=== PATIENT | male | born 1965 | race Caucasian/White ===

== ENCOUNTER 2016-08-12 07:30 | Emergency (ER) | payer MEDICAID ==
[~2016-08-12] VITALS: Ht 167.6 cm; Wt 56.0 kg
[~2016-08-12 07:30] MED LIST: ATOR20TA38 PO; METF-388 PO; POLY17PO6 PO
[2016-08-12 07:36] VITALS: Ht 167.6 cm; Wt 56.0 kg
[2016-08-12] MEDS ORDERED: KETOROLAC 30 MG INJ IV STA (07:52)
[2016-08-12] MEDS ORDERED: SOD CHLORIDE 0.9% 1,000 ML IV ONE (08:00)
--- NOTE | 2016-08-12 08:28 | RADRPT ---
PROCEDURE: XR Chest. CLINICAL INDICATION: Cough TECHNIQUE: PA and lateral chest x-ray. COMPARISON: 01/26/2016 FINDINGS: The lungs are adequately expanded with mild perihilar interstitial thickening and bronchial wall thi ckening. There is no focal consolidation, pleural effusion, or pneumothorax. The heart and mediasti nal contours are unremarkable. Bones are unremarkable. No acute fractures are present. RPTAT: EE IMPRESSION: Mild airways disease which can be seen with viral/atypical pneumonia or asthma. .Yadira Russell MD, MD Date Time Electronically viewed and signed by .Yadira Russell MD, MD on 08/12/2016 08:32 .T/
[2016-08-12 08:58] LABS: BASOPHILS % 0.3 % (0.0-2.0); HEMATOCRIT 48.4 % (42.0-52.0); HEMOGLOBIN 16.1 g/dl (14.0-18.0); LYMPHOCYTES # 0.4 10^3/ul (0.8-2.9); LYMPHOCYTES % 4.6 % (15.0-51.0); MEAN CORPUSCULAR HEMOGLOBIN 31.7 pg (29.0-33.0); MEAN CORPUSCULAR HGB CONC 33.3 g/dl (32.0-37.0); MEAN PLATELET VOLUME 8.3 fl (7.4-10.4); MONOCYTE # 0.5 10^3/ul (0.3-0.9); MONOCYTES % 5.2 % (0.0-11.0); NEUTROPHIL # 8.2 10^3/ul (1.6-7.5); NEUTROPHILS % 89.9 % (39.0-77.0); PLATELET COUNT 181 10^3/UL (140-440); UNCORRECTED WBC 9.1 10^3/ul (4.8-10.8); WHITE BLOOD COUNT 9.1 10^3/ul (4.8-10.8)
[2016-08-12 09:11] LABS: ALBUMIN 4.5 g/dl (3.3-4.9)
[2016-08-12 09:12] LABS: POTASSIUM 4.3 mmol/L (3.5-5.1)
[2016-08-12 09:13] LABS: CONDITION 1
[2016-08-12 09:14] LABS: ALBUMIN/GLOBULIN RATIO 1.32; BILIRUBIN,INDIRECT 0.7 mg/dl (0-1.1); BILIRUBIN,TOTAL 0.7 mg/dl (0.2-1.3); CREATININE 0.97 mg/dl (0.61-1.24); TOTAL PROTEIN 7.9 g/dl (6.1-8.1)
[2016-08-12 09:15] LABS: CALCIUM 9.1 mg/dl (8.4-10.2)
[2016-08-12] MEDS ORDERED: INSULIN REGULAR, HUMAN 100 UNIT/1 ML 3ML VIAL IV ONE ×2 (10:00→11:30)
--- NOTE | 2016-08-12 10:15 | ERD ---
ER Documentation Chief Complaint Date/Time DATE: 08/12/16 TIME: 10:10 Chief Complaint PELVIC PAIN, POLY DIPSIA, URINARY FREQUENCY, SORE THROAT, VOMITING HPI Patient presents with several days of coughing congestion, sore throat, sneezing , fever, dry mouth. He states he is coughing up yellow-green sputum. He also has a bilateral earache. He denies any vomiting, diarrhea, or ill contacts. He did not get his flu shot this year. He states his blood sugars have been running in the 200-300 range. He admits he did not take his diabetic medication today. He states that the rhinorrhea from his nose is clear. He has not traveled out of the country. He has not tried any iwem-trr-eewmeuo medications for this illness. ROS All systems reviewed and are negative except as per history of present illness. Medications Home Meds Active Scripts Metformin Hcl* (Metformin Hcl*) 1,000 Mg Tablet, 1000 MG PO BID, #60 TAB Prov:LUCAS TEIXEIRA 06/13/16 Polyethylene Glycol* (Miralax*) 17 Gm Powd.pack, 17 GM PO DAILY, #7 Prov:NATE LLAMAS MD 01/27/16 Reported Medications Atorvastatin Calcium* (Atorvastatin Calcium*) 20 Mg Tablet, 20 MG PO QHS, #30 TAB 01/26/16 Metformin Hcl* (Metformin Hcl*) 1,000 Mg Tablet, 1000 MG PO WITH BREAKFAST DINNE , #60 TAB 01/26/16 Allergies Allergies: Coded Allergies: No Known Allergy (Unverified , 01/26/16) PMhx/Soc History of Surgery: Yes (ABDOMINAL SURGERY (UNKNOWN)) Anesthesia Reaction: No Hx Neurological Disorder: No Hx Respiratory Disorders: No Hx Cardiac Disorders: Yes (high cholesterol) Hx Psychiatric Problems: No Hx Miscellaneous Medical Probl: Yes (DM) Hx Alcohol Use: No Hx Substance Use: No Hx Tobacco Use: No Smoking Status: Never smoker Physical Exam Vitals Vital Signs Date Time Temp Pulse Resp B/P Pulse Ox O2 Delivery O2 Flow Rate FiO2 08/12/16 09:09 99.1 92 20 96/60 95 Room Air 08/12/16 07:36 100.3 110 22 115/59 95 Physical Exam Const: Well-developed thin male on the bed who appears ill but nontoxic, he coughed up some scant purulent phlegm in front of me Head: Atraumatic Eyes: Normal Conjunctiva ENT: Normal External Ears, Nose and Mouth., Posterior pharynx is erythematous Neck: Full range of motion..~ No meningismus. Resp: Clear to auscultation bilaterally Cardio: Regular rate and rhythm, no murmurs Abd: Soft, non tender, non distended. Normal bowel sounds Skin: No petechiae or rashes Back: No midline or flank tenderness Ext: No cyanosis, or edema Neur: Awake and alert Psych: Normal Mood and Affect Result Diagram: 08/12/16 0800 08/12/16 0800 Results 24 hrs Laboratory Tests Test 08/12/16 08:00 08/12/16 08:09 08/12/16 09:41 Alanine Aminotransferase (ALT/SGPT) 46IU/L Albumin 4.5g/dl Albumin/Globulin Ratio 1.32 Alkaline Phosphatase 136IU/L Anion Gap 27 Aspartate Amino Transf (AST/SGOT) 31IU/L Basophils # 0.010^3/ul Basophils % 0.3% Blood Urea Nitrogen 16mg/dl Calcium Level 9.1mg/dl Carbon Dioxide Level 21mmol/L Chloride Level 94mmol/L Creatinine 0.97mg/dl Direct Bilirubin 0.00mg/dl Eosinophils # 0.010^3/ul Eosinophils % 0.0% Globulin 3.40g/dl Glucose Level 388mg/dl Hematocrit 48.4% Hemoglobin 16.1g/dl Indirect Bilirubin 0.7mg/dl Lymphocytes # 0.410^3/ul Lymphocytes % 4.6% Mean Corpuscular Hemoglobin 31.7pg Mean Corpuscular Hemoglobin Concent 33.3g/dl Mean Corpuscular Volume 95.0fl Mean Platelet Volume 8.3fl Monocytes # 0.510^3/ul Monocytes % 5.2% Neutrophils # 8.210^3/ul Neutrophils % 89.9% Nucleated Red Blood Cells # 0.010^3/ul Nucleated Red Blood Cells % 0.0/100WBC Platelet Count 57161^3/UL Potassium Level 4.3mmol/L Red Blood Count 5.1010^6/ul Red Cell Distribution Width 13.0% Sodium Level 138mmol/L Total Bilirubin 0.7mg/dl Total Protein 7.9g/dl White Blood Count 9.110^3/ul Bedside Glucose 384mg/dL 333mg/dL Current Medications Medications (Trade) Dose Ordered Sig/Natividad Route PRN Reason Start Time Stop Time Status Last Admin Dose Admin Sodium Chloride (NS) 1,000 ml @ 1,000 mls/hr Q1H ONCE IV 08/12/16 08:00 08/12/16 08:59 DC 08/12/16 08:20 Ketorolac Tromethamine (Toradol) 30 mg ONCE STAT IV 08/12/16 07:52 08/12/16 07:55 DC 08/12/16 08:20 Insulin Human Regular (Humulin R) 8 unit ONCE ONCE IV 08/12/16 10:00 08/12/16 10:01 DC Departure Diagnosis: Primary Impression: Bronchitis Additional Impression: Hyperglycemia due to type 2 diabetes mellitus Diabetes mellitus intermediate card tender insulin use: with intermediate card tender use Qualified Code: E11.65 - Type 2 diabetes mellitus with hyperglycemia, with long-term current use of insulin Condition: Good Patient Instructions: Acute Bronchitis Additional Instructions: Take all the medications as prescribed. Please take your diabetic medications at all times. Drink plenty of fluids and stay hydrated. Take Tylenol or Motrin as needed for fever and body aches. See her primary care physician if not improving in the next 3-5 days. Return to the emergency department for any new or worsening symptoms. ANNIKA SAUNDERS Aug 12, 2016 10:15
[2016-08-12] MEDS ORDERED: AZIT250T94 PO (10:16)
[2016-08-12] MEDS ORDERED: BENZ100C70 PO (10:17)
[2016-08-12] MEDS ORDERED: HYDR473S12 PO (10:18)
[2016-08-12 12:10] VITALS: BP 102/69; PULSE 88; RESP 20; TEMP 98.9
== END 2016-08-12 12:11 | disposition home or self-care (01) ==
LOC: E/R 07:30
DX: J20.9 Acute bronchitis, unspecified (principal); E11.65 Type 2 diabetes mellitus with hyperglycemia; Z79.84 Long term (current) use of oral hypoglycemic drugs
CPT/HCPCS: 71020; 80053; 82962; 85025; J1815; J1885; J7030; 96374; 96375; 96376

== ENCOUNTER 2017-01-16 12:15 | Emergency (ER) | payer OTHER ==
[~2017-01-16] VITALS: Ht 152.4 cm; Wt 58.0 kg
[~2017-01-16 12:15] MED LIST changes: +AZIT250T94 PO; +BENZ100C70 PO; +HYDR473S12 PO; -METF-388 PO; +METF1000 PO
[2017-01-16 12:20] VITALS: Ht 152.4 cm; Wt 58.0 kg
[2017-01-16] MEDS ORDERED: SOD CHLORIDE 0.9% 1,000 ML IV STA (14:36)
[2017-01-16 15:15] LABS: ADD SCAN DIFF NO
[2017-01-16 15:17] LABS: BASOPHILS % 0.6 % (0.0-2.0); EOSINOPHILS # 0.1 10^3/ul (0.0-0.5); EOSINOPHILS % 1.3 % (0.0-7.0); HEMATOCRIT 45.2 % (42.0-52.0); HEMOGLOBIN 16.1 g/dl (14.0-18.0); LYMPHOCYTES # 2.7 10^3/ul (0.8-2.9); LYMPHOCYTES % 40.7 % (15.0-51.0); MEAN CORPUSCULAR HEMOGLOBIN 32.5 pg (29.0-33.0); MEAN CORPUSCULAR HGB CONC 35.6 g/dl (32.0-37.0); MEAN CORPUSCULAR VOLUME 91.1 fl (82.0-101.0); MEAN PLATELET VOLUME 9.8 fl (7.4-10.4); MONOCYTE # 0.5 10^3/ul (0.3-0.9); MONOCYTES % 7.5 % (0.0-11.0); NEUTROPHIL # 3.3 10^3/ul (1.6-7.5); NEUTROPHILS % 49.6 % (39.0-77.0); PLATELET COUNT 233 10^3/UL (140-415); RED BLOOD COUNT 4.96 10^6/ul (4.70-6.10); RED CELL DISTRIBUTION WIDTH 11.8 % (11.5-14.5); WHITE BLOOD COUNT 6.7 10^3/ul (4.8-10.8)
--- NOTE | 2017-01-16 15:22 | RADRPT ---
PROCEDURE: CT Brain without contrast. CLINICAL INDICATION: Syncope TECHNIQUE: CT scan of the brain was performed on a multidetector high-resolution CT scan. Axial im aging was obtained of the brain without contrast administration. Coronal and sagittal reformatted i mages were obtained from the axial source images. Standard CT scan of the head without contrast prot ocols were performed. The total exam CTDI equals 44.4 mGy and the total exam DLP equals 630.2 mGy-cm. One or more of the following dose reduction techniques were used: - Automated exposure control. - Adjustment of the mA and/or kV according to patient size. Use of iterative reconstruction technique. COMPARISON: None. FINDINGS: The ventricular system and peripheral CSF spaces are unremarkable. Negative for intracranial masses hemorrhages or midline shift. Lebron-white matter junction is unremarkable. The bones and calvarium are intact. The frontal sinuses are hypoplastic. Remainder the paranasal sinuses visualized are u nremarkable. The mastoids are unremarkable. IMPRESSION: No evidence of intracranial masses hemorrhages or midline shift. RPTAT:AAJJ Physician Libby Date Time Electronically viewed and signed by Physician Libby on 01/16/2017 15:21 /
[2017-01-16 15:38] LABS: PARTIAL THROMBOPLASTIN TIME 26.9 Sec (25.0-35.0); PROTIME 13.2 Sec (12.2-14.2)
[2017-01-16 15:41] LABS: ANION GAP 13 (8-16); BLOOD UREA NITROGEN 12 mg/dl (7-20); CALCIUM 9.3 mg/dl (8.4-10.2); CARBON DIOXIDE 28 mmol/L (21-31); CHLORIDE 99 mmol/L (97-110); CREATININE 0.65 mg/dl (0.61-1.24); GLUCOSE 369 mg/dl (70-220); SODIUM 136 mmol/L (135-144)
[2017-01-16 15:53] LABS: TROPONIN-I < 0.012 ng/ml (0.00-0.12)
[2017-01-16 15:57] LABS: ADD UMIC NO; URINE BILIRUBIN (Dip) NEGATIVE (NEGATIVE); URINE BLOOD (Dip) NEGATIVE (NEGATIVE); URINE COLOR LT. YELLOW (YELLOW); URINE GLUCOSE (Dip) >=1000 % (NEGATIVE); URINE KETONES (Dip) NEGATIVE (NEGATIVE); URINE LEUKOCYTE ESTERASE (Dip) NEGATIVE (NEGATIVE); URINE NITRITE (Dip) NEGATIVE (NEGATIVE); URINE TOTAL PROTEIN (Dip) NEGATIVE (NEGATIVE); URINE UROBILINOGEN (Dip) 0.2 E.U./dL (0.1-1.0)
--- NOTE | 2017-01-16 16:25 | RADRPT ---
PROCEDURE: XR Knee. CLINICAL INDICATION: Right knee pain TECHNIQUE: 3 images of the right knee are available for review. COMPARISON: None available FINDINGS: There is no acute fracture. Alignment is normal. Joint spaces are preserved. There is mild prepatellar soft tissue swelling and a very small joint effusion. There are vascular calcifications. IMPRESSION: 1. No radiographic evidence of acute fracture. 2. Mild prepatellar soft tissue swelling and trace joint effusion. RPTAT: UU .Brando Agosto MD, Date Time Electronically viewed and signed by .Brando Agosto MD, on 01/16/2017 16:25 .K/
--- NOTE | 2017-01-16 16:26 | RADRPT ---
PROCEDURE: XR Chest. CLINICAL INDICATION: Chest Pain. TECHNIQUE: Single frontal view of the chest was obtained. COMPARISON: Chest x-ray from 08/12/2016 FINDINGS: The heart and mediastinum are within normal limits. The lungs are clear. A possible calcified granuloma is again identified in the left mid lung measuri ng up to 2 mm. There is no significant pleural effusion or pneumothorax. IMPRESSION: No acute disease. Possible 2 mm calcified granuloma in the left mid lung. RPTAT: EE Physician Chadwick Date Time Electronically viewed and signed by Dionte Baker Physician on 01/16/2017 16:26 /
[2017-01-16] MEDS ORDERED: DICLOFENAC SODIUM 37.5 MG/ML VIAL IV STA (17:48)
[2017-01-16 20:53] VITALS: BP 111/72; PULSE 55; RESP 18
[2017-01-16] MEDS ORDERED: GABA300C PO (20:55)
[2017-01-16] MEDS ORDERED: METF500T4 PO (20:55)
[2017-01-16] MEDS ORDERED: HYDR-906 PO (20:59)
[2017-01-16] MEDS ORDERED: NAPR-260 PO (21:12)
--- NOTE | 2017-01-16 21:28 | ERD ---
ER Documentation Chief Complaint Date/Time DATE: 01/16/17 TIME: 21:13 Chief Complaint weak,dizzy,syncope x2 yesterday HPI This 51-year-old male comes emergency room because 2 times yesterday he felt very lightheaded and once he tripped and fell and struck his right knee on the ground. He did not strike his head or have any head injuries. He thought that he might be dehydrated and he drank a lot of water following that. Today he feels some lightheadedness but better than yesterday. Denies any chest pain or shortness of breath. Denies any focal neurological symptoms. States that he has diabetes with neuropathy. As a burning sensation in both of his feet sometimes. He only has 3 of his metformin pills left and so is been taking them only once a day. Has primary care doctor but has not seen him for 2 months. He has currently called to make an appointment. ROS All systems reviewed and are negative except as per history of present illness. Medications Home Meds Active Scripts Naproxen* (Naprosyn*) 500 Mg Tablet, 500 MG PO BID Y for PAIN AND/OR INFLAMMATION, #14 TAB Prov:KEL ARROYO DO 01/16/17 Hydrocodone/Acetaminophen ([place] 5-325 Tablet) 1 Each Tablet, 1 EACH PO Q6, #7 TAB Prov:KEL ARROYO DO 01/16/17 Gabapentin* (Neurontin*) 300 Mg Capsule, 300 MG PO TID, #90 CAP Prov:KEL ARROYO DO 01/16/17 Metformin* (Glucophage*) 500 Mg Tab, 500 MG PO BID, #50 TAB Prov:KEL ARROYO DO 01/16/17 Reported Medications Metformin Hcl* (Metformin Hcl*) 1,000 Mg Tablet, 1000 MG PO WITH BREAKFAST DINNE , #60 TAB 01/26/16 Discontinued Reported Medications Atorvastatin Calcium* (Atorvastatin Calcium*) 20 Mg Tablet, 20 MG PO QHS, #30 TAB 01/26/16 Discontinued Scripts Hydrocodone-Chlorpheniramine Polis* (Hydrocodone-Chlorpheniramine Polis*) 10-8MG /5ML Malika.er.12h, 5 ML PO Q12H Y for COUGH, #60 ML 0 Refills Prov:ANNIKA SAUNDERS 08/12/16 Benzonatate* (Tessalon Perle*) 100 Mg Capsule, 100 MG PO Q8H Y for COUGH, #30 CAP 0 Refills Prov:ANNIKA SAUNDERS 08/12/16 Azithromycin* (Zithromax*) 250 Mg Tablet, 250 MG PO .ОЛЬГА DIRECTED, #6 TAB 0 Refills TAKE 500 MG (2 TABS) THE FIRST DAY THEN 250 MG (1 TAB) DAYS 2-5 Prov:ANNIKA SAUNDERS 08/12/16 Metformin Hcl* (Metformin Hcl*) 1,000 Mg Tablet, 1000 MG PO BID, #60 TAB Prov:LUCAS TEIXEIRA 06/13/16 Polyethylene Glycol* (Miralax*) 17 Gm Powd.pack, 17 GM PO DAILY, #7 Prov:NATE LLAMAS MD 01/27/16 Allergies Allergies: Coded Allergies: No Known Allergy (Unverified , 01/16/17) PMhx/Soc History of Surgery: Yes (ABDOMINAL SURGERY (UNKNOWN)) Anesthesia Reaction: No Hx Neurological Disorder: No Hx Respiratory Disorders: No Hx Cardiac Disorders: Yes (high cholesterol) Hx Psychiatric Problems: No Hx Miscellaneous Medical Probl: Yes (DM,SYNCOPE) Hx Alcohol Use: No Hx Substance Use: No Hx Tobacco Use: No Smoking Status: Never smoker Physical Exam Vitals Vital Signs Date Time Temp Pulse Resp B/P Pulse Ox O2 Delivery O2 Flow Rate FiO2 01/16/17 20:53 55 18 111/72 97 Room Air 01/16/17 17:20 56 18 99/55 98 Room Air 01/16/17 12:20 98.5 82 18 129/75 99 Physical Exam Const: [] No distress Head: Atraumatic Eyes: Normal Conjunctiva, EOMI, PERRLA ENT: Normal External Ears, Nose and Mouth. Mucous members of the most moist Neck: Full range of motion..~ No meningismus. Resp: Clear to auscultation bilaterally Cardio: Regular rate and rhythm, no murmurs Abd: Soft, non tender, non distended. Normal bowel sounds Skin: No petechiae or rashes Back: No midline or flank tenderness Ext: No cyanosis, or edema, right knee with no deformities, mild tenderness on patellar bouncing, no ligamentous laxity, distal pulses intact all 4 extremities. Neur: Awake and alert and oriented 3, cranial nerves II through XII intact, no cerebellar deficits with finger-nose testing, normal gait Psych: Normal Mood and Affect Result Diagram: 01/16/17 1510 01/16/17 1510 Results 24 hrs Laboratory Tests Test 01/16/17 15:10 01/16/17 15:30 01/16/17 20:52 White Blood Count 6.710^3/ul Red Blood Count 4.9610^6/ul Hemoglobin 16.1g/dl Hematocrit 45.2% Mean Corpuscular Volume 91.1fl Mean Corpuscular Hemoglobin 32.5pg Mean Corpuscular Hemoglobin Concent 35.6g/dl Red Cell Distribution Width 11.8% Platelet Count 36495^3/UL Mean Platelet Volume 9.8fl Neutrophils % 49.6% Lymphocytes % 40.7% Monocytes % 7.5% Eosinophils % 1.3% Basophils % 0.6% Nucleated Red Blood Cells % 0.0/100WBC Neutrophils # 3.310^3/ul Lymphocytes # 2.710^3/ul Monocytes # 0.510^3/ul Eosinophils # 0.110^3/ul Basophils # 0.010^3/ul Nucleated Red Blood Cells # 0.010^3/ul Prothrombin Time 13.2Sec Prothrombin Time Ratio 1.0 INR International Normalized Ratio 1.00 Activated Partial Thromboplast Time 26.9Sec Sodium Level 136mmol/L Potassium Level 4.0mmol/L Chloride Level 99mmol/L Carbon Dioxide Level 28mmol/L Anion Gap 13 Blood Urea Nitrogen 12mg/dl Creatinine 0.65mg/dl Glucose Level 369mg/dl Calcium Level 9.3mg/dl Troponin I < 0.012ng/ml Urine Color LT. YELLOW Urine Clarity CLEAR Urine pH 5.0 Urine Specific [place] 1.015 Urine Ketones NEGATIVE Urine Nitrite NEGATIVE Urine Bilirubin NEGATIVE Urine Urobilinogen 0.2 E.U./dL Urine Leukocyte Esterase NEGATIVE Urine Hemoglobin NEGATIVE Urine Glucose >=1000% Urine Total Protein NEGATIVE Bedside Glucose 284mg/dL Current Medications Medications (Trade) Dose Ordered Sig/Natividad Route PRN Reason Start Time Stop Time Status Last Admin Dose Admin Sodium Chloride (NS) 1,000 ml @ 1,000 mls/hr Q1H STAT IV 01/16/17 14:36 01/16/17 15:35 DC 01/16/17 15:18 Diclofenac Sodium (Dyloject) 37.5 mg ONCE STAT IV 01/16/17 17:48 01/16/17 17:51 DC 01/16/17 17:58 Procedures/MDM 51-year-old male with diabetic hyperglycemia and single episode yesterday. Is given a liter of normal saline in the emergency room and felt much better. Had premature atrial contraction his first EKG. He was monitored in the emergency room for several hours. He still felt well repeat EKG showed another PAC. cardiac monitor technician showed infrequent premature atrial contractions with normal blood pressure. Head CT is negative. No signs of infection. Patient does request prescription for his glucose test strips. This is neuropathy has not been treated yet I'm going to discharge him with a prescription for Neurontin. I am also refilling his metformin which is 500 mg twice a day. No signs of cardiac ischemia. Primary care follow-up in the next couple of days as well as written and verbal instructions to obtain an echocardiogram as an outpatient. Return precautions given for chest pain shortness of breath any more episodes of near syncope, any pain and he cannot control. Also printed a copy the patient 's x-ray reports acute follow up his primary care physician for the calcified mass on his x-ray Monitor interpretation: Normal sinus rhythm are occasional sinus bradycardia, occasional premature atrial contraction. No arrhythmias EKG #1 interpretation: Normal sinus rhythm rate of 65, single premature atrial contraction, normal axis, no ST-T wave changes concerning for acute ischemia EKG interpretation #2: Sinus bradycardia rate of 56, single premature atrial contraction, normal axis, normal normal intervals, no ST or T-wave changes concerning for acute ischemia Chest x-ray interpretation: See no acute process, I see no or edema, no pneumothorax, no infiltrates, no fractures. 2 similar calcified granuloma. X-ray interpretation: See no acute fracture, dislocation, mild prepatellar effusion. Departure Diagnosis: Primary Impression: Hyperglycemia due to type 2 diabetes mellitus Additional Impressions: Contusion, knee Calcified granuloma of lung Syncope Condition: Stable Patient Instructions: Treating Peripheral Neuropathy, Contusion, Lower Extremity, Syncope, Unk Cause Referrals: COMMUNITY CLINICS YOU HAVE RECEIVED A MEDICAL SCREENING EXAM AND THE RESULTS INDICATE THAT YOU DO NOT HAVE A CONDITION THAT REQUIRES URGENT TREATMENT IN THE EMERGENCY DEPARTMENT. FURTHER EVALUATION AND TREATMENT OF YOUR CONDITION CAN WAIT UNTIL YOU ARE SEEN IN YOUR DOCTORS OFFICE WITHIN THE NEXT 1-2 DAYS. IT IS YOUR RESPONSIBILITY TO MAKE AN APPOINTMENT FOR FOLOW-UP CARE. IF YOU HAVE A PRIMARY DOCTOR --you should call your primary doctor and schedule an appointment IF YOU DO NOT HAVE A PRIMARY DOCTOR YOU CAN CALL OUR PHYSICIAN REFERRAL HOTLINE AT IF YOU CAN NOT AFFORD TO SEE A PHYSICIAN YOU CAN CHOSE FROM THE FOLLOWING [facility] CL[facility] [address] [facility] [address] [facility] [address] [facility] [address] [facility] [address] [facility]. [facility]. [address] Additional Instructions: Llame al doctor MAANA y denita ryanne ACE PARA DENTRO DE 1-2 [place].Consigue un referral para un ECHOCARDIOGRAMA. Dgale a la secretaria que nosotros le instruimos hacer esta ace.Avise o llame si rodney condicin se empeora antes de la ace. Regresa aqui si peor o no mejor. KEL ARROYO DO Jan 16, 2017 21:25
== END 2017-01-16 21:21 | disposition home or self-care (01) ==
LOC: E/R 12:15
DX: E11.65 Type 2 diabetes mellitus with hyperglycemia (principal); S80.01XA Contusion of right knee, initial encounter; R55 Syncope and collapse; J84.10 Pulmonary fibrosis, unspecified; W01.118A Fall on same level from slipping, tripping and stumbling with subsequent striking against other sharp object, initial encounter; Y92.9 Unspecified place or not applicable; Z79.84 Long term (current) use of oral hypoglycemic drugs
CPT/HCPCS: 36415; 70450; 71010; 73562; 80048; 81003; 82962; 84484; 85025; 85610; 85730; 93005; 96374; J7030; Z7502; Z7610

== ENCOUNTER 2017-02-11 13:00 | Emergency (ER) | payer OTHER ==
[~2017-02-11] VITALS: Ht 157.5 cm; Wt 58.0 kg
[~2017-02-11 13:00] MED LIST changes: -ATOR20TA38 PO; -AZIT250T94 PO; -BENZ100C70 PO; +GABA300C PO; +HYDR-906 PO; -HYDR473S12 PO; +METF500T4 PO; +NAPR-260 PO; -POLY17PO6 PO
[2017-02-11 13:03] VITALS: Ht 157.5 cm; Wt 58.0 kg
[2017-02-11] MEDS ORDERED: SOD CHLORIDE 0.9% 2,000 ML IV STA (13:10)
[2017-02-11] MEDS ORDERED: LACTATED RINGER'S 1,000 ML IV STA (13:10)
[2017-02-11 13:33] LABS: ADD SCAN DIFF NO
[2017-02-11 13:35] LABS: BASOPHILS % 0.6 % (0.0-2.0); EOSINOPHILS # 0.1 10^3/ul (0.0-0.5); EOSINOPHILS % 0.8 % (0.0-7.0); HEMATOCRIT 45.1 % (42.0-52.0); HEMOGLOBIN 15.7 g/dl (14.0-18.0); LYMPHOCYTES # 2.1 10^3/ul (0.8-2.9); LYMPHOCYTES % 31.8 % (15.0-51.0); MEAN CORPUSCULAR HEMOGLOBIN 31.4 pg (29.0-33.0); MEAN CORPUSCULAR HGB CONC 34.8 g/dl (32.0-37.0); MEAN CORPUSCULAR VOLUME 90.2 fl (82.0-101.0); MEAN PLATELET VOLUME 9.7 fl (7.4-10.4); MONOCYTE # 0.4 10^3/ul (0.3-0.9); MONOCYTES % 6.2 % (0.0-11.0); NEUTROPHILS % 60.3 % (39.0-77.0); PLATELET COUNT 248 10^3/UL (140-415); WHITE BLOOD COUNT 6.6 10^3/ul (4.8-10.8)
[2017-02-11 13:52] LABS: CALCIUM 9.3 mg/dl (8.4-10.2); CREATININE 0.66 mg/dl (0.61-1.24); POTASSIUM 4.2 mmol/L (3.5-5.1)
--- NOTE | 2017-02-11 14:20 | RADRPT ---
PROCEDURE: CT Brain without contrast. CLINICAL INDICATION: 51-year-old male with history of a fall. TECHNIQUE: A CT of the brain was performed on a [employer] [address] [employer] [employer] [address] scanner Gram [employer]i ng a low dose technique with axial imaging from the skull base through the vertex without IV contras t. Multiplanar reformatted images were made. Images were reviewed on a PACS workstation. The CTDI vol is 33.6 mGy and the DLP is 470.3 mGycm. One or more of the following dose reduction techniques were used: - Automated exposure control. - Adjustment of the mA and/or kV according to patient size. Use of iterative reconstruction technique. COMPARISON: None FINDINGS: There is a small scalp hematoma over the dorsal left occipital bone. The fourth ventricle is normal in size. The third and lateral ventricles are normal in size and configuration. The brain parenchy ma is normal. The visible portions of the globes and extraocular muscles are normal. The paranasal sinuses are cl ear. The mastoid air cells and internal auditory canals are normal. The bony calvarium is intact. IMPRESSION: 1. There is a small scalp hematoma adjacent to the left occipital bone. 2. There are vascular calcifications in the distal vertebral arteries. 3. Otherwise, negative CT scan of brain without contrast. No other interval changes are noted comp ared to 01/16/2017. RPTAT:AAJJ Physician John Date Time Electronically viewed and signed by Physician John on 02/11/2017 14:20 CHAVEZ/
[2017-02-11] MEDS ORDERED: INSULIN LISPRO 100 UNIT/ML VIAL SC STA (14:40)
--- NOTE | 2017-02-11 15:00 | ERD ---
ER Documentation Chief Complaint Date/Time DATE: 02/11/17 TIME: 14:58 Chief Complaint headcahe s/p fall today , feels dizzy HPI Patient is a 51-year-old male with diabetes who presents with high blood sugar. He went to a clinic and his sugar was high. He was not feeling well. He takes metformin. He said that he passed out just prior to arrival and hit his head. Upon review of old medical records this is the patient's seventh visit to the ER since 2009. He does not know the name of his primary doctor. ROS All systems reviewed and are negative except as per history of present illness. Medications Home Meds Reported Medications Metformin Hcl* (Metformin Hcl*) 1,000 Mg Tablet, 1000 MG PO WITH BREAKFAST DINNE , #60 TAB 01/26/16 Discontinued Scripts Naproxen* (Naprosyn*) 500 Mg Tablet, 500 MG PO BID Y for PAIN AND/OR INFLAMMATION, #14 TAB Prov:KEL ARROYO DO 01/16/17 Hydrocodone/Acetaminophen (Maxwell 5-325 Tablet) 1 Each Tablet, 1 EACH PO Q6, #7 TAB Prov:DINAKEL DO 01/16/17 Gabapentin* (Neurontin*) 300 Mg Capsule, 300 MG PO TID, #90 CAP Prov:KEL ARROYO DO 01/16/17 Metformin* (Glucophage*) 500 Mg Tab, 500 MG PO BID, #50 TAB Prov:DINAKEL DO 01/16/17 Allergies Allergies: Coded Allergies: No Known Allergy (Unverified , 02/11/17) PMhx/Soc History of Surgery: Yes (ABDOMINAL SURGERY (UNKNOWN)) Anesthesia Reaction: No Hx Neurological Disorder: No Hx Respiratory Disorders: No Hx Cardiac Disorders: Yes (high cholesterol) Hx Psychiatric Problems: No Hx Miscellaneous Medical Probl: Yes (DM,SYNCOPE) Hx Alcohol Use: No Hx Substance Use: No Hx Tobacco Use: No Smoking Status: Never smoker FmHx Family History: diabetes Physical Exam Vitals Vital Signs Date Time Temp Pulse Resp B/P Pulse Ox O2 Delivery O2 Flow Rate FiO2 02/11/17 14:30 60 17 102/68 100 Room Air 02/11/17 13:03 98.1 76 18 118/74 98 Physical Exam Const: No acute distress Head: Atraumatic Eyes: Normal Conjunctiva ENT: Normal External Ears, Nose and Mouth. Neck: Full range of motion..~ No meningismus. Resp: Clear to auscultation bilaterally Cardio: Regular rate and rhythm, no murmurs Abd: Soft, non tender, non distended. Normal bowel sounds Skin: No petechiae or rashes Back: No midline or flank tenderness Ext: No cyanosis, or edema Neur: Awake and alert Psych: Normal Mood and Affect Result Diagram: 02/11/17 1325 02/11/17 1325 Results 24 hrs Laboratory Tests Test 02/11/17 13:13 02/11/17 13:25 02/11/17 14:41 Bedside Glucose 529mg/dL 314mg/dL White Blood Count 6.610^3/ul Red Blood Count 5.0010^6/ul Hemoglobin 15.7g/dl Hematocrit 45.1% Mean Corpuscular Volume 90.2fl Mean Corpuscular Hemoglobin 31.4pg Mean Corpuscular Hemoglobin Concent 34.8g/dl Red Cell Distribution Width 12.0% Platelet Count 32298^3/UL Mean Platelet Volume 9.7fl Neutrophils % 60.3% Lymphocytes % 31.8% Monocytes % 6.2% Eosinophils % 0.8% Basophils % 0.6% Nucleated Red Blood Cells % 0.0/100WBC Neutrophils # 4.010^3/ul Lymphocytes # 2.110^3/ul Monocytes # 0.410^3/ul Eosinophils # 0.110^3/ul Basophils # 0.010^3/ul Nucleated Red Blood Cells # 0.010^3/ul Sodium Level 130mmol/L Potassium Level 4.2mmol/L Chloride Level 95mmol/L Carbon Dioxide Level 25mmol/L Anion Gap 14 Blood Urea Nitrogen 16mg/dl Creatinine 0.66mg/dl Glucose Level 481mg/dl Lactic Acid Level 1.2mmol/L Calcium Level 9.3mg/dl Current Medications Medications (Trade) Dose Ordered Sig/Natividad Route PRN Reason Start Time Stop Time Status Last Admin Dose Admin Sodium Chloride 2,000 ml @ 1,000 mls/hr Q2H STAT IV 02/11/17 13:10 02/11/17 15:09 02/11/17 13:27 Lactated Ringer's (Lr) 1,000 ml @ 1,000 mls/hr Q1H STAT IV 02/11/17 13:10 02/11/17 14:09 DC 02/11/17 14:56 Insulin Human Lispro (Humalog) 10 unit ONCE STAT SC 02/11/17 14:40 02/11/17 14:47 DC 02/11/17 14:57 Procedures/MDM EKG read by me: Rate/Rhythm: Regular rate and rhythm at a rate of 78 Intervals: Normal Impression: No evidence of ischemia or arrhythmia CT brain negative per radiology. Patient is a 51-year-old male with diabetes who presents with hyperglycemia. The patient has no signs of diabetic ketoacidosis. He was given 3 L of fluid for fluid resuscitation as well as 10 units of Humalog subcutaneous. The patient was found to have pseudo-hyponatremia. The patient has no skull fracture or intracranial hemorrhage. His EKG shows no signs of ischemia or arrhythmia. At this point I believe outpatient management is appropriate. The patient will need to follow-up closely with a primary doctor within 24-48 hours. He can return for any worsening symptoms. Departure Diagnosis: Primary Impression: Hyponatremia Additional Impressions: Acute head injury Encounter type: initial encounter Qualified Code: S09.90XA - Acute head injury, initial encounter Hyperglycemia due to type 2 diabetes mellitus Diabetes mellitus exterminator helper insulin use: unspecified exterminator helper insulin use status Qualified Code: E11.65 - Type 2 diabetes mellitus with hyperglycemia, unspecified detention insulin use status Condition: Fair Patient Instructions: Hyperglycemia (High Blood Sugar) Referrals: [facility] Usted se solis hecho un examen mdico de control que le indica que no est en ryanne condicin que requiera tratamiento urgente en el Departamento de Emergencia. Un estudio ms profundo y el tratamiento de rodney condicin pueden esperar sin ningn riesgo hasta que usted sea atendida/o en el consultorio de rodney mdico o ryanne cl karlene. Es responsabilidad suya arreglar ryanne ace para el seguimiento del ally. MANEJO DE CONDICIONES NO URGENTES EN EL FUTURO 1) Si usted tiene un mdico de atencin primaria: Usted debera llamar a rodney mdico de atencin primaria antes de venir al departamento de emergencia. Despus de las horas de consultorio, rodney doctor o rodney asociado/a est disponible por telfono. El mdico o enfermero de fannie en el servicio telefnico puede asesorarle por ramandeep medio para atender el problema, o ally contrario se puede programar ryanne ace. 2) Si usted no tiene un mdico de atencin primaria: Llame al mdico o clnica de referencia que aparece abajo russell las horas de consultorio para hacer ryanne ace para que le vean. CLINICAS: [place] [phone] [facility] [phone] [address] [facility] [phone] [facility]. [place] [phone] [facility] [place] [address] [phone] [place] [phone] Additional Instructions: Llame al doctor MAANA y denita ryanne ACE PARA DENTRO DE 1-2 [place].Dgale a la secretaria que nosotros le instruimos hacer esta ace.Avise o llame si rodney condicin se empeora antes de la ace. Regresa aqui si peor o no mejor. DANIELLE LARRY MD Feb 11, 2017 15:00
[2017-02-11 15:12] VITALS: BP 120/75; PULSE 58; RESP 16; TEMP 98.3
[2017-02-11 15:18] LABS: ADD UMIC NO; UR ASCORBIC ACID NEGATIVE (NEGATIVE); UR BILIRUBIN (Dip) NEGATIVE (NEGATIVE); UR BLOOD (Dip) NEGATIVE (NEGATIVE); UR CLARITY CLEAR (CLEAR); UR COLOR STRAW (YELLOW); UR GLUCOSE (Dip) 3+ mg/dL (NEGATIVE); UR KETONES (Dip) TRACE mg/dL (NEGATIVE); UR LEUKOCYTE ESTERASE (Dip) NEGATIVE Leu/ul (NEGATIVE); UR NITRITE (Dip) NEGATIVE (NEGATIVE); UR SPECIFIC GRAVITY (Dip) 1.029 (1.003-1.030); UR TOTAL PROTEIN (Dip) NEGATIVE (NEGATIVE); UR UROBILINOGEN (Dip) NEGATIVE (NEGATIVE)
== END 2017-02-11 15:32 | disposition home or self-care (01) ==
LOC: E/R 13:00
DX: E87.1 Hypo-osmolality and hyponatremia (principal); E11.65 Type 2 diabetes mellitus with hyperglycemia; R93.0 Abnormal findings on diagnostic imaging of skull and head, not elsewhere classified; W01.198A Fall on same level from slipping, tripping and stumbling with subsequent striking against other object, initial encounter; Y92.9 Unspecified place or not applicable; Z79.84 Long term (current) use of oral hypoglycemic drugs
CPT/HCPCS: 70450; 80048; 81003; 82962; 83605; 85025; 93005; J1815; J7030; J7120; 36415; 96372

== ENCOUNTER 2017-05-04 12:55 | Emergency (ER) | payer OTHER ==
[~2017-05-04] VITALS: Ht 165.1 cm; Wt 56.6 kg
[~2017-05-04 12:55] MED LIST changes: -GABA300C PO; -HYDR-906 PO; -METF500T4 PO; -NAPR-260 PO
[2017-05-04 13:07] VITALS: Ht 165.1 cm; Wt 56.6 kg
[2017-05-04] MEDS ORDERED: SOD CHLORIDE 0.9% 2,000 ML IV STA (13:29)
[2017-05-04 14:03] LABS: BASOPHIL # 0.1 10^3/ul (0.0-0.1); BASOPHILS % 0.9 % (0.0-2.0); EOSINOPHILS # 0.1 10^3/ul (0.0-0.5); EOSINOPHILS % 0.9 % (0.0-7.0); HEMATOCRIT 48.3 % (42.0-52.0); HEMOGLOBIN 16.5 g/dl (14.0-18.0); LYMPHOCYTES # 1.5 10^3/ul (0.8-2.9); LYMPHOCYTES % 26.5 % (15.0-51.0); MEAN CORPUSCULAR HEMOGLOBIN 31.2 pg (29.0-33.0); MEAN CORPUSCULAR HGB CONC 34.2 g/dl (32.0-37.0); MEAN CORPUSCULAR VOLUME 91.3 fl (82.0-101.0); MEAN PLATELET VOLUME 10.2 fl (7.4-10.4); MONOCYTE # 0.4 10^3/ul (0.3-0.9); MONOCYTES % 6.6 % (0.0-11.0); NEUTROPHIL # 3.6 10^3/ul (1.6-7.5); NEUTROPHILS % 64.7 % (39.0-77.0); PLATELET COUNT 220 10^3/UL (140-415); RED BLOOD COUNT 5.29 10^6/ul (4.70-6.10); WHITE BLOOD COUNT 5.6 10^3/ul (4.8-10.8)
[2017-05-04 14:08] LABS: ADD UMIC NO; UR ASCORBIC ACID NEGATIVE (NEGATIVE); UR BILIRUBIN (Dip) NEGATIVE (NEGATIVE); UR BLOOD (Dip) NEGATIVE (NEGATIVE); UR CLARITY CLEAR (CLEAR); UR COLOR STRAW (YELLOW); UR GLUCOSE (Dip) 3+ mg/dL (NEGATIVE); UR KETONES (Dip) NEGATIVE (NEGATIVE); UR LEUKOCYTE ESTERASE (Dip) NEGATIVE Leu/ul (NEGATIVE); UR NITRITE (Dip) NEGATIVE (NEGATIVE); UR SPECIFIC GRAVITY (Dip) 1.028 (1.003-1.030); UR TOTAL PROTEIN (Dip) NEGATIVE (NEGATIVE); UR UROBILINOGEN (Dip) NEGATIVE (NEGATIVE)
[2017-05-04 14:24] LABS: CREATININE 1.18 mg/dl (0.61-1.24); POTASSIUM 4.5 mmol/L (3.5-5.1)
[2017-05-04] MEDS ORDERED: INSULIN LISPRO 100 UNIT/ML VIAL SC STA (14:32)
[2017-05-04] MEDS ORDERED: MTF1000T PO (14:34)
--- NOTE | 2017-05-04 16:49 | ERD ---
ER Documentation Chief Complaint Date/Time DATE: 05/04/17 TIME: 16:46 Chief Complaint generalized weakness with numbness, hx dm, poc glucose 559 HPI Patient is a 52-year-old male with diabetes who presents with numbness to his feet. The patient has bilateral foot numbness which is been going on for the past 3 days. He also complains of whole body pain. He said that he ran out of metformin 3 days ago and has not taken any medications for his diabetes over the past 3 days. Upon review of old medical records this is the patient's eighth visit to the ER since 2009. He does not know the name of a primary doctor. ROS All systems reviewed and are negative except as per history of present illness. Medications Home Meds Active Scripts Metformin* (Glucophage*) 1,000 Mg Tablet, 1000 MG PO BID, #60 TAB Prov:DANIELLE LARRY MD 05/04/17 Reported Medications Metformin Hcl* (Metformin Hcl*) 1,000 Mg Tablet, 1000 MG PO WITH BREAKFAST DINNE , #60 TAB 01/26/16 Allergies Allergies: Coded Allergies: No Known Allergy (Unverified , 05/04/17) PMhx/Soc History of Surgery: Yes (ABDOMINAL SURGERY (UNKNOWN)) Anesthesia Reaction: No Hx Neurological Disorder: No Hx Respiratory Disorders: No Hx Cardiac Disorders: Yes (high cholesterol) Hx Psychiatric Problems: No Hx Miscellaneous Medical Probl: Yes (DM,SYNCOPE) Hx Alcohol Use: No Hx Substance Use: No Hx Tobacco Use: No Smoking Status: Never smoker FmHx Family History: diabetes Physical Exam Vitals Vital Signs Date Time Temp Pulse Resp B/P Pulse Ox O2 Delivery O2 Flow Rate FiO2 05/04/17 15:58 56 20 130/67 99 Room Air 05/04/17 13:07 97.5 87 18 129/74 97 Physical Exam Const: No acute distress Head: Atraumatic Eyes: Normal Conjunctiva ENT: Normal External Ears, Nose and Mouth. Neck: Full range of motion..~ No meningismus. Resp: Clear to auscultation bilaterally Cardio: Regular rate and rhythm, no murmurs Abd: Soft, non tender, non distended. Normal bowel sounds Skin: No petechiae or rashes Back: No midline or flank tenderness Ext: No cyanosis, or edema Neur: Awake and alert Psych: Normal Mood and Affect Result Diagram: 05/04/17 1340 05/04/17 1340 Results 24 hrs Laboratory Tests Test 05/04/17 13:05 05/04/17 13:40 05/04/17 15:27 Bedside Glucose 559mg/dL 381mg/dL White Blood Count 5.610^3/ul Red Blood Count 5.2910^6/ul Hemoglobin 16.5g/dl Hematocrit 48.3% Mean Corpuscular Volume 91.3fl Mean Corpuscular Hemoglobin 31.2pg Mean Corpuscular Hemoglobin Concent 34.2g/dl Red Cell Distribution Width 12.0% Platelet Count 23338^3/UL Mean Platelet Volume 10.2fl Neutrophils % 64.7% Lymphocytes % 26.5% Monocytes % 6.6% Eosinophils % 0.9% Basophils % 0.9% Nucleated Red Blood Cells % 0.0/100WBC Neutrophils # 3.610^3/ul Lymphocytes # 1.510^3/ul Monocytes # 0.410^3/ul Eosinophils # 0.110^3/ul Basophils # 0.110^3/ul Nucleated Red Blood Cells # 0.010^3/ul Urine Color STRAW Urine Clarity CLEAR Urine pH 6.0 Urine Specific [place] 1.028 Urine Ketones NEGATIVEmg/dL Urine Nitrite NEGATIVEmg/dL Urine Bilirubin NEGATIVEmg/dL Urine Urobilinogen NEGATIVEmg/dL Urine Leukocyte Esterase NEGATIVELeu/ul Urine Hemoglobin NEGATIVEmg/dL Urine Glucose 3+mg/dL Urine Total Protein NEGATIVEmg/dl Sodium Level 133mmol/L Potassium Level 4.5mmol/L Chloride Level 100mmol/L Carbon Dioxide Level 27mmol/L Anion Gap 11 Blood Urea Nitrogen 18mg/dl Creatinine 1.18mg/dl Glucose Level 573mg/dl Lactic Acid Level 1.9mmol/L Calcium Level 9.0mg/dl Current Medications Medications (Trade) Dose Ordered Sig/Natividad Route PRN Reason Start Time Stop Time Status Last Admin Dose Admin Sodium Chloride (NS) 2,000 ml @ 1,000 mls/hr Q2H STAT IV 05/04/17 13:29 05/04/17 15:28 DC 05/04/17 13:49 Insulin Human Lispro (Humalog) 20 unit ONCE STAT SC 05/04/17 14:32 05/04/17 14:34 DC 05/04/17 15:39 Procedures/MDM Patient is a 52-year-old male with diabetes who presents with acute hyperglycemia. There is no signs of diabetic ketoacidosis. I believe he is having diabetic neuropathy of his feet bilaterally. The patient was given 2 L of normal saline and Humalog 1 unit subcutaneous. The patient be discharged home. His sugar has improved from 573-280. The patient will be given a prescription for metformin and will need to follow-up with a primary doctor within 1 week. The patient can return for any worsening symptoms. I believe outpatient management is appropriate. Departure Diagnosis: Primary Impression: Hyperglycemia Additional Impressions: Acute weakness Bilateral leg paresthesia Condition: Fair Patient Instructions: Hyperglycemia (High Blood Sugar), Paraesthesias Additional Instructions: Llame al doctor nombrado abajo (Referral Sources) MAANA y denita ryanne ACE PARA DENTRO DE RYANNE SEMANA. Dgale a la secretaria que nosotros le instruimos hacer esta ace.Avise o llame si rodney condicin se empeora antes de la ace. DANIELLE LARRY MD May 04, 2017 16:49
[2017-05-04 16:53] VITALS: BP 110/64; PULSE 60; RESP 20
== END 2017-05-04 16:55 | disposition home or self-care (01) ==
LOC: E/R 12:55
DX: E11.65 Type 2 diabetes mellitus with hyperglycemia (principal); R20.2 Paresthesia of skin; Z79.84 Long term (current) use of oral hypoglycemic drugs
CPT/HCPCS: 36415; 80048; 81003; 82962; 83605; 85025; 96372; J1815; J7030; Z7502

== ENCOUNTER 2017-07-06 07:52 | Emergency (ER) | payer OTHER ==
[~2017-07-06] VITALS: Ht 157.5 cm; Wt 56.0 kg
[~2017-07-06 07:52] MED LIST changes: +MTF1000T PO
[2017-07-06 07:54] VITALS: Ht 157.5 cm; Wt 56.0 kg
[2017-07-06] MEDS ORDERED: SOD CHLORIDE 0.9% 1,000 ML IV STA (08:44)
[2017-07-06 08:58] LABS: BASOPHILS % 0.9 % (0.0-2.0); EOSINOPHILS # 0.1 10^3/ul (0.0-0.5); EOSINOPHILS % 1.1 % (0.0-7.0); HEMATOCRIT 43.6 % (42.0-52.0); HEMOGLOBIN 15.5 g/dl (14.0-18.0); LYMPHOCYTES # 1.6 10^3/ul (0.8-2.9); LYMPHOCYTES % 33.4 % (15.0-51.0); MEAN CORPUSCULAR HEMOGLOBIN 31.8 pg (29.0-33.0); MEAN CORPUSCULAR HGB CONC 35.6 g/dl (32.0-37.0); MEAN CORPUSCULAR VOLUME 89.5 fl (82.0-101.0); MEAN PLATELET VOLUME 9.9 fl (7.4-10.4); MONOCYTE # 0.3 10^3/ul (0.3-0.9); MONOCYTES % 6.4 % (0.0-11.0); NEUTROPHIL # 2.7 10^3/ul (1.6-7.5); PLATELET COUNT 231 10^3/UL (140-415); RED BLOOD COUNT 4.87 10^6/ul (4.70-6.10); RED CELL DISTRIBUTION WIDTH 11.9 % (11.5-14.5); WHITE BLOOD COUNT 4.7 10^3/ul (4.8-10.8)
[2017-07-06 09:00] VITALS: BP 118/85; PULSE 70; RESP 20
[2017-07-06 09:00] LABS: MODE ROOM AIR; MetHgb Venous 0.1 %; Sample Type Blood venous; Venous COHb 0.6 %; Venous Fraction OxyHgb 93.1 %; Venous Total Hemglobin 16.1 g/dl
--- NOTE | 2017-07-06 09:03 | RADRPT ---
PROCEDURE: XR Chest. CLINICAL INDICATION: Chest Pain. TECHNIQUE: Single frontal view of the chest was obtained COMPARISON: None FINDINGS: The heart and mediastinum are within normal limits. The lungs are clear. There is no pleural effusion or pneumothorax. The bones and soft tissue show no acute change. IMPRESSION: No definite abnormalities are identified. RPTAT:AAJJ Denys Chavez Physician Date Time Electronically viewed and signed by Denys Chavez Physician on 07/06/2017 09:02 /
[2017-07-06 09:15] LABS: ANION GAP 14 (8-16); BLOOD UREA NITROGEN 16 mg/dl (7-20); CALCIUM 8.3 mg/dl (8.4-10.2); CARBON DIOXIDE 28 mmol/L (21-31); CHLORIDE 96 mmol/L (97-110); CREATININE 0.69 mg/dl (0.61-1.24); POTASSIUM 4.2 mmol/L (3.5-5.1); SODIUM 134 mmol/L (135-144)
--- NOTE | 2017-07-06 09:15 | RADRPT ---
PROCEDURE: CT Brain without. CLINICAL INDICATION: Headache, paresthesia TECHNIQUE: A CT of the brain was performed utilizing axial sections from the skull base through th e vertex without contrast. The scan was reviewed in soft tissue brain and high frequency resolution bone algorithm windows. Images were reviewed on a high-resolution PACS workstation. The exam CTDI = 44.84 mGy, and the DLP = 720.23 mGy-cm. One or more of the following dose reduction techniques w ere used: Automated exposure control, adjustment of the mA and / or kV according to patient size, o r use of iterative reconstruction technique. DICOM images are available. COMPARISON: Head CT dated 02/11/2017 FINDINGS: The ventricles are normal in size and midline in position. There is no intracranial hemorrhage, mid line shift, or mass effect. No abnormal extra-axial fluid collections are identified. The smith-whi te differentiation is well preserved. The basal cisterns are patent. The posterior fossa is unrema rkable. The visualized portions of the orbits are unremarkable. The paranasal sinuses and mastoid air cells are clear. No calvarial fracture or abnormality are identified. The soft tissues are unremarkable . IMPRESSION: Unremarkable CT of the brain. No significant interval change. RPTAT: HH .Linda Ricardo MD, Date Time Electronically viewed and signed by .Linda Ricardo MD, MD on 07/06/2017 09:15 .G/
[2017-07-06 09:28] LABS: GLUCOSE 543 mg/dl (70-220)
[2017-07-06 09:29] LABS: TROPONIN-I < 0.012 ng/ml (0.00-0.12)
[2017-07-06 09:42] LABS: ADD UMIC NO; UR ASCORBIC ACID NEGATIVE (NEGATIVE); UR BILIRUBIN (Dip) NEGATIVE (NEGATIVE); UR BLOOD (Dip) NEGATIVE (NEGATIVE); UR CLARITY CLEAR (CLEAR); UR COLOR STRAW (YELLOW); UR GLUCOSE (Dip) 3+ mg/dL (NEGATIVE); UR KETONES (Dip) TRACE mg/dL (NEGATIVE); UR LEUKOCYTE ESTERASE (Dip) NEGATIVE Leu/ul (NEGATIVE); UR NITRITE (Dip) NEGATIVE (NEGATIVE); UR SPECIFIC GRAVITY (Dip) 1.024 (1.003-1.030); UR TOTAL PROTEIN (Dip) NEGATIVE (NEGATIVE); UR UROBILINOGEN (Dip) NEGATIVE (NEGATIVE)
[2017-07-06] MEDS ORDERED: INSULIN LISPRO 100 UNIT/ML VIAL SC STA (09:45)
--- NOTE | 2017-07-06 10:03 | ERD ---
ER Documentation Chief Complaint Chief Complaint Left hand/left foot numbness x last night HPI This is a 52-year-old diabetic gentleman who presents to the emergency room complaining of paresthesias. A court interpreter was used. The patient states that over the last 3-4 days he has noted left foot numbness than left hand numbness than right foot numbness now right hand numbness. The patient now describes a stocking and glove numbness to all 4 extremities. He denies any slurred speech headache vision changes chest pain or shortness of breath. He denies any fevers or chills. He thinks that he is compliance with his metformin. He does not have regular outpatient follow-up with a primary care physician. ROS All systems reviewed and are negative except as per history of present illness. Medications Home Meds Active Scripts Metformin* (Glucophage*) 1,000 Mg Tablet, 1000 MG PO BID, #60 TAB Prov:DANIELLE LARRY MD 05/04/17 Reported Medications Metformin Hcl* (Metformin Hcl*) 1,000 Mg Tablet, 1000 MG PO WITH BREAKFAST DINNE , #60 TAB 01/26/16 Allergies Allergies: Coded Allergies: No Known Allergy (Unverified , 07/06/17) PMhx/Soc History of Surgery: No Anesthesia Reaction: No Hx Neurological Disorder: No Hx Respiratory Disorders: Yes (Bronchitis) Hx Cardiac Disorders: No Hx Psychiatric Problems: No Hx Miscellaneous Medical Probl: Yes (DM) Hx Alcohol Use: No Hx Substance Use: No Hx Tobacco Use: No Smoking Status: Unknown if ever smoked FmHx Family History: diabetes Physical Exam Vitals Vital Signs Date Time Temp Pulse Resp B/P Pulse Ox O2 Delivery O2 Flow Rate FiO2 07/06/17 09:00 70 20 118/85 96 Room Air 07/06/17 07:54 97.9 83 19 110/72 99 Physical Exam General: Well developed, well nourished, no acute distress Head: Normocephalic, atraumatic. Eyes: Pupils equally reactive, EOM intact ENT: Moist mucous membranes Neck: Supple, no lymphadenopathy Respiratory: Lungs clear bilaterally, no distress Cardiovascular: RRR, no murmurs, rubs, or gallops Abdominal: Soft, non-tender, non-distended, no peritoneal signs : Deferred MSK: No edema, no unilateral swelling, 5/5 strength, neurovascularly intact to all 4 extremities Neurologic: Alert and oriented, moving all extremities, normal speech, no focal weakness, no cerebellar signs, sensation intact to all extremities. steady gait without ataxia, no dysmetria Skin: No rash Psych: Normal mood Result Diagram: 07/06/17 0840 07/06/17 0815 Results 24 hrs Laboratory Tests Test 07/06/17 08:15 07/06/17 08:28 07/06/17 08:40 07/06/17 08:44 Sodium Level 134mmol/L Potassium Level 4.2mmol/L Chloride Level 96mmol/L Carbon Dioxide Level 28mmol/L Anion Gap 14 Blood Urea Nitrogen 16mg/dl Creatinine 0.69mg/dl Glucose Level 543mg/dl Calcium Level 8.3mg/dl Troponin I < 0.012ng/ml Bedside Glucose 486mg/dL White Blood Count 4.710^3/ul Red Blood Count 4.8710^6/ul Hemoglobin 15.5g/dl Hematocrit 43.6% Mean Corpuscular Volume 89.5fl Mean Corpuscular Hemoglobin 31.8pg Mean Corpuscular Hemoglobin Concent 35.6g/dl Red Cell Distribution Width 11.9% Platelet Count 17576^3/UL Mean Platelet Volume 9.9fl Neutrophils % 58.0% Lymphocytes % 33.4% Monocytes % 6.4% Eosinophils % 1.1% Basophils % 0.9% Nucleated Red Blood Cells % 0.0/100WBC Neutrophils # 2.710^3/ul Lymphocytes # 1.610^3/ul Monocytes # 0.310^3/ul Eosinophils # 0.110^3/ul Basophils # 0.010^3/ul Nucleated Red Blood Cells # 0.010^3/ul Blood Gas Specimen Source Blood venous Arterial Blood Date Drawn 07/06/2017 8:55:28 AM Arterial Blood Gas Puncture Site VENOUS LINE Ken Test N/A Venous Blood pH 7.429 Venous Blood pCO2 (Temp Corrected) 39.0mmHG Venous Blood pO2 (Temp Corrected) 68.8mmHG Venous Blood HCO3 25.2mmol/L Venous Blood Oxygen Saturation 93.8mmHG Venous Blood Base Excess 1.0mmol/L Venous Blood Total Hemoglobin 16.1g/dl Venous Blood Oxyhemoglobin 93.1% Venous Blood Methemoglobin 0.1% Blood Gas A-a O2 Differential 34.2mmHg Carboxyhemoglobin 0.6% Blood Gas Temperature 37.0C Blood Gas Modality ROOM AIR FiO2 21.0% Blood Gas Notified Whom MDA Blood Gas Notified Time 07/06/2017 9:00:06 AM Test 07/06/17 09:10 Urine Color STRAW Urine Clarity CLEAR Urine pH 6.0 Urine Specific [place] 1.024 Urine Ketones TRACEmg/dL Urine Nitrite NEGATIVEmg/dL Urine Bilirubin NEGATIVEmg/dL Urine Urobilinogen NEGATIVEmg/dL Urine Leukocyte Esterase NEGATIVELeu/ul Urine Hemoglobin NEGATIVEmg/dL Urine Glucose 3+mg/dL Urine Total Protein NEGATIVEmg/dl Current Medications Medications (Trade) Dose Ordered Sig/Natividad Route PRN Reason Start Time Stop Time Status Last Admin Dose Admin Sodium Chloride (NS) 1,000 ml @ 1,000 mls/hr Q1H STAT IV 07/06/17 08:44 07/06/17 09:43 DC 07/06/17 08:47 Insulin Human Lispro (Humalog) 8 unit ONCE STAT SC 07/06/17 09:45 07/06/17 09:47 DC Procedures/MDM EKG, MONITORS, & DIAGNOSTIC IMAGING: EKG: I reviewed and interpreted a 12-lead EKG. Rhythm: Normal sinus rhythm Ectopy: None Intervals: No abnormalities ST segments: No elevations or depressions T waves: No contiguous inversions Chest x-ray: I reviewed and interpreted a 1 view of the chest Mediastinum: No enlargement Cardiac silhouette: No cardiomegaly Airspace: Clear lung norris bilaterally without evidence of pneumothorax Bones: No evidence of fracture CT brain: No evidence of acute intracranial process per radiologist read LAB INTERPRETATION: The patient has hyperglycemia without evidence of diabetic ketoacidosis though there is slight ketones in the urine. The pH is normal, the bicarb is normal. MEDICAL DECISION MAKING: The patient's paresthesias likely represent diabetic peripheral neuropathy. He has stocking and glove distribution to all 4 extremities without a focal neurologic examination. I do not believe this is consistent with a stroke but given the patient's age CT of the brain to rule out hemorrhage or mass would be reasonable. The patient has a negative troponin and a nonischemic EKG without cardiac signs or symptoms at this point. ER COURSE: The patient's laboratory testing shows evidence of hyperglycemia without evidence of diabetic ketoacidosis. However, I believe a small dose of Humalog would be reasonable given the patient's slight ketonuria. It is unclear if the patient is compliant with his medication regimen. The patient was advised strongly to take his medications and follow-up with a primary care physician is better outpatient control of his glucose would be appropriate. At this point the patient has no diagnostic imaging or laboratory testing or clinical findings concerning for acute coronary syndrome or acute cerebral ischemia. Outpatient follow-up with primary care physician will be reasonable. This is likely diabetic neuropathy, outpatient gabapentin may be necessary if symptoms persist but the patient is not having a significant pain component. No evidence of acute vascular occlusion. I kept the patient and/or family informed of laboratory and diagnostic imaging results throughout the emergency room course. DISPOSITION PLAN: We discussed follow up with the patient's primary care doctor within 24 to 48 hours as needed. We also discussed return to the emergency room for worsening symptoms or worsening condition. Outpatient referral: [None required] Discharge Medications: Continue metformin Departure Diagnosis: Primary Impression: Paresthesia Additional Impressions: Hyperglycemia Uncontrolled diabetes mellitus Diabetes mellitus type: type 2 Diabetes mellitus complication status: without complication Diabetes mellitus nursing home insulin use: without nursing home use Qualified Code: E11.65 - Uncontrolled type 2 diabetes mellitus without complication, without long-term current use of insulin Peripheral neuropathy Peripheral neuropathy type: polyneuropathy, unspecified Qualified Code: G62.9 - Peripheral polyneuropathy Condition: Stable Patient Instructions: Hyperglycemia (High Blood Sugar), Paraesthesias Additional Instructions: Llame al doctor poli mays (Referral Sources) MAANA y denita ryanne ACE PARA DENTRO DE RYANNE SEMANA. Dgale a la secretaria que nosotros le instruimos hacer esta ace.Avise o llame si rodney condicin se empeora antes de la ace. FRANCHESCA SMITH MD Jul 06, 2017 10:02
== END 2017-07-06 11:00 | disposition home or self-care (01) ==
LOC: E/R 07:52
DX: R20.2 Paresthesia of skin (principal); E11.65 Type 2 diabetes mellitus with hyperglycemia; G62.9 Polyneuropathy, unspecified; R07.9 Chest pain, unspecified; Z79.84 Long term (current) use of oral hypoglycemic drugs
CPT/HCPCS: 36415; 70450; 71010; 80048; 81003; 82803; 82962; 84484; 85025; 96360; 96372; J1815; J7030; Z7502; 93005

== ENCOUNTER 2018-03-01 11:07 | Emergency (ER) | END 2018-03-01 12:30 | disposition home or self-care (01) ==

== ENCOUNTER 2018-11-01 15:32 | Emergency (ER) | payer MEDICAID, OTHER ==
[~2018-11-01] VITALS: Ht 160 cm; Wt 58.3 kg
[~2018-11-01 15:32] MED LIST changes: +CEPH-443 PO; -METF1000 PO; +METF100010 PO; +SULF1TAB31 PO; +TRAM50TA2 PO
[2018-11-01 15:42] VITALS: Ht 160 cm; Wt 58.3 kg
[2018-11-01] MEDS ORDERED: SOD CHLORIDE 0.9% 1,000 ML IV STA (19:50)
[2018-11-01] MEDS ORDERED: MTF1000T PO ×2 (21:39→21:40)
--- NOTE | 2018-11-01 21:45 | ERD ---
ER Documentation Chief Complaint Chief Complaint bossman foot and leg numbness x 4 days; denies open wounds; hx of DM HPI 53-year-old male patient with a past medical history of diabetes presents to the ED complaining of bilateral foot and leg numbness and tingling that started about 4 days ago. Patient reports that he takes metformin and another medication that he is unsure of. She reports that he has some lower abdominal pain that is intermittent for the last few months. Denies any nausea, vomiting, diarrhea, neck stiffness. ROS All systems reviewed and are negative except as per history of present illness. Medications Home Meds Active Scripts Metformin* (Glucophage*) 1,000 Mg Tablet, 1000 MG PO BID, #60 TAB Prov:SANDRA ORTIZ PA-C 11/01/18 Tramadol HCl (Tramadol HCl) 50 Mg Tablet, 50 MG PO Q4 PRN for PAIN, #20 TAB Prov:PASILABAN,KLAR F 03/01/18 Cephalexin* (Keflex*) 500 Mg Capsule, 500 MG PO TID for 7 Days, CAP Prov:PASILABAN,KLAR F 03/01/18 Sulfamethoxazole/Trimethoprim* (Bactrim Ds* Tablet) 1 Each Tablet, 1 TAB PO BID, #14 TAB Prov:PASILABAN,KLAR F 03/01/18 Metformin* (Glucophage*) 1,000 Mg Tablet, 1000 MG PO BID, #60 TAB Prov:DANIELLE LARRY MD 05/04/17 Reported Medications Metformin Hcl* (Metformin Hcl*) 1,000 Mg Tablet, 1000 MG PO WITH BREAKFAST DINNE, #60 TAB 01/26/16 Allergies Allergies: Coded Allergies: No Known Allergy (Unverified , 07/06/17) PMhx/Soc History of Surgery: No Anesthesia Reaction: No Hx Neurological Disorder: No Hx Respiratory Disorders: No Hx Cardiac Disorders: No Hx Psychiatric Problems: No Hx Miscellaneous Medical Probl: No Hx Alcohol Use: No Hx Substance Use: No Hx Tobacco Use: No Smoking Status: Never smoker FmHx Family History: No diabetes, No coronary disease Physical Exam Vitals Vital Signs Date Temp Pulse Resp B/P (MAP) Pulse Ox O2 O2 Flow FiO2 Time Delivery Rate 11/01/18 98.2 62 20 109/66 100 Room Air 21:49 (80) 11/01/18 97.5 82 20 111/62 100 15:42 (78) Physical Exam Const: [id number], well-nourished. In no acute distress. Head: Atraumatic, normocephalic Eyes: Normal Conjunctiva without injection. No purulent discharge. ENT: Normal external ear, nose. Moist oropharynx without tonsillar exudates. Non-erythematous pharynx. Uvula midline. No drooling. No trismus. Neck: No cervical midline tenderness. Full range of motion. No meningismus. No cervical lymphadenopathy. No JVD. Resp: Clear to auscultation bilaterally. No wheezing, rhonchi, rales, or crackles. No accessory muscle use. No retractions. Cardio: Regular rate and rhythm. No murmurs, rubs or gallops. Abd: Soft, nontender, non distended. Normal bowel sounds. No palpable masses. No rebound tenderness. No guarding. Negative McBurney's point. Negative psoas sign. Negative obturator sign. Skin: No petechiae or rashes Back: No midline tenderness. No CVA tenderness. Ext: No cyanosis, or edema. Neur: Awake and alert. Normal gait. Normal coordination. Psych: Normal Mood and Affect Result Diagram: 11/01/18200811/01/182008 Results 24 hrs Laboratory Tests Test 11/01/18 20:09 11/01/18 20:12 11/01/18 21:21 White Blood Count 6.2 10^3/ul Red Blood Count 5.12 10^6/ul Hemoglobin 16.2 g/dl Hematocrit 47.4 % Mean Corpuscular Volume 92.6 fl Mean Corpuscular Hemoglobin 31.6 pg Mean Corpuscular 34.2 g/dl Hemoglobin Concent Red Cell Distribution Width 11.7 % Platelet Count 230 10^3/UL Mean Platelet Volume 9.2 fl Immature Granulocytes % 0.300 % Neutrophils % 48.2 % Lymphocytes % 39.6 % Monocytes % 7.1 % Eosinophils % 3.5 % Basophils % 1.3 % Nucleated Red Blood Cells % 0.0 /100WBC Immature Granulocytes # 0.020 10^3/ul Neutrophils # 3.0 10^3/ul Lymphocytes # 2.5 10^3/ul Monocytes # 0.4 10^3/ul Eosinophils # 0.2 10^3/ul Basophils # 0.1 10^3/ul Nucleated Red Blood Cells # 0.0 10^3/ul Urine Color COLORLESS Urine Clarity CLEAR Urine pH 6.0 Urine Specific [place] 1.026 Urine Ketones NEGATIVE mg/dL Urine Nitrite NEGATIVE mg/dL Urine Bilirubin NEGATIVE mg/dL Urine Urobilinogen NEGATIVE mg/dL Urine Leukocyte Esterase NEGATIVE Ravi/ul Urine Hemoglobin NEGATIVE mg/dL Urine Glucose 3+ mg/dL Urine Total Protein NEGATIVE mg/dl Sodium Level 136 mmol/L Potassium Level 4.3 mmol/L Chloride Level 98 mmol/L Carbon Dioxide Level 25 mmol/L Anion Gap 13 Blood Urea Nitrogen 21 mg/dl Creatinine 0.59 mg/dl Est Glomerular Filtrat > 60 mL/min Rate mL/min Glucose Level 514 mg/dl Calcium Level 9.5 mg/dl Total Bilirubin 0.4 mg/dl Direct Bilirubin 0.00 mg/dl Indirect Bilirubin 0.4 mg/dl Aspartate Amino Transf (AST/SGOT) 52 IU/L Alanine 31 IU/L Aminotransferase (ALT/SGPT) Alkaline Phosphatase 240 IU/L Total Protein 7.5 g/dl Albumin 4.4 g/dl Globulin 3.10 g/dl Albumin/Globulin Ratio 1.41 Lipase 213 U/L Bedside Glucose 486 mg/dL 336 mg/dL Current Medications Medications Dose Sig/Natividad Start Time Status Last (Trade) Ordered Route PRN Stop Time Admin Dose Reason Admin Sodium 1,000 ml @ Q1H STAT 11/01/18 DC 11/01/18 Chloride 1,000 mls/hr IV 19:50 20:02 11/01/18 20:49 Procedures/MDM 53-year-old male patient with a past medical history of diabetes presents to ED complaining of bilateral foot and leg paresthesias as well as slight lower abdominal pain. Patient is afebrile and nontoxic-appearing. CBC: No leukocytosis. No e/o of systemic infection. No e/o anemia. CMP: No e/o severe acidosis, alkalosis, renal failure, diabetic ketoacidosis, liver disease. 554 decreased to 336 with 1 L normal saline. Lipase within normal limits. Urine: No leukocyte esterase, no nitrites, no hematuria. No ketonuria. Patient is ambulating without any difficulty. Patient feels better after receiving fluids. Patient likely has diabetic neuropathy. No open wounds or lacerations noted. No ulcerations. Low suspicion for infected diabetic wounds. Patient has hyperglycemia but no DKA or HHS noted. Patient's extremity symptoms have stabilized while they have been evaluated in the department and are appropriate for outpatient follow up. No evidence of fractures, dislocations, compartment syndrome, neurologic injury, vascular injury, open joint, open fracture, tendon laceration, septic arthritis, osteomyelitis, DVT, foreign body, or other emergent conditions. Low suspicion for testicular torsion, gastritis, GERD, peptic ulcer disease, cholecystitis, choledocholithiasis, cholangitis, pancreatitis, appendicitis, bowel obstruction, ileus, volvulus, nephrolithiasis, pyelonephritis, hepatitis, perforated viscus, diverticulitis, abdominal hernia, acute abdomen, mesenteric ischemia or other emergent conditions. This patient was discussed with my supervising physician, Dr. Urban who agreed with the management discharge plan. Diagnosis: Bilateral leg paresthesia, Hyperglycemia Discharge medications: Refill on Metformin, glucometer, Test strips, Lancets Follow up with primary care physician in 1-2 days for management of Diabetes. Instructed patient to return to the ED sooner for any worsening symptoms. Steve brooks's questions were answered. Patient understood and agreed with discharge plan. Patient discharged stable. Departure Diagnosis: Primary Impression: Bilateral leg paresthesia Additional Impression: Hyperglycemia Condition: Stable Patient Instructions: Hyperglycemia (High Blood Sugar), Neuropathy, Peripheral Referrals: COMMUNITY CLINICS YOU HAVE RECEIVED A MEDICAL SCREENING EXAM AND THE RESULTS INDICATE THAT YOU DO NOT HAVE A CONDITION THAT REQUIRES URGENT TREATMENT IN THE EMERGENCY DEPARTMENT. FURTHER EVALUATION AND TREATMENT OF YOUR CONDITION CAN WAIT UNTIL YOU ARE SEEN IN YOUR DOCTORS OFFICE WITHIN THE NEXT 1-2 DAYS. IT IS YOUR RESPONSIBILITY TO MAKE AN APPOINTMENT FOR FOLOW-UP CARE. IF YOU HAVE A PRIMARY DOCTOR --you should call your primary doctor and schedule an appointment IF YOU DO NOT HAVE A PRIMARY DOCTOR YOU CAN CALL OUR PHYSICIAN REFERRAL HOTLINE AT IF YOU CAN NOT AFFORD TO SEE A PHYSICIAN YOU CAN CHOSE FROM THE FOLLOWING [facility] CLINICS [facility] [address] [facility] [address] [facility]. [facility] [address] [facility] [address] [facility] [address] [facility]. [facility] [address] [facility]. [facility] YOU HAVE RECEIVED A MEDICAL SCREENING EXAM AND THE RESULTS INDICATE THAT YOU DO NOT HAVE A CONDITION THAT REQUIRES URGENT TREATMENT IN THE EMERGENCY DEPARTMENT. FURTHER EVALUATION AND TREATMENT OF YOUR CONDITION CAN WAIT UNTIL YOU ARE SEEN IN YOUR DOCTORS OFFICE WITHIN THE NEXT 1-2 DAYS. IT IS YOUR RESPONSIBILITY TO MAKE AN APPOINTMENT FOR FOLOW-UP CARE. IF YOU HAVE A PRIMARY DOCTOR --you should call your primary doctor and schedule and appointment IF YOU DO NOT HAVE A PRIMARY DOCTOR YOU CAN CALL OUR PHYSICIAN REFERRAL HOTLINE AT . IF YOU CAN NOT AFFORD TO SEE A PHYSICIAN YOU CAN CHOSE FROM THE FOLLOWING [facility] INSTITUTIONS[facility] [address] [place] [address] [facility] [address] [place] [address] [facility] [address] [place] [address] [facility] URGENT CARE/SPECIALTIES Additional Instructions: Llame al doctor MAANA y denita ryanne ACE PARA DENTRO DE 2-3 HANCOCK.Dgale a la secretaria que nosotros le instruimos hacer esta ace.Avise o llame si rodney condicin se empeora antes de la ace. Regresa aqui si peor o no mejor. SANDRA ORTIZ PA-C Nov 01, 2018 21:45
[2018-11-01 21:49] VITALS: BP 109/66; PULSE 62; RESP 20
== END 2018-11-01 21:52 | disposition home or self-care (01) ==
LOC: FTE 15:32
DX: R20.2 Paresthesia of skin (principal); E11.65 Type 2 diabetes mellitus with hyperglycemia; Z76.0 Encounter for issue of repeat prescription; Z79.84 Long term (current) use of oral hypoglycemic drugs
CPT/HCPCS: 80053; 81003; 82962; 83690; 85025; J7030; 36415